=== PATIENT | female | born 1940 | race Caucasian/White ===

== ENCOUNTER 2016-07-13 09:46 | Outpatient (CLI) | payer OTHER | END 2016-07-13 23:00 | LOC: LAB SRH 09:46 | DX: I49.5 Sick sinus syndrome (principal); R00.1 Bradycardia, unspecified | CPT/HCPCS: 90074; 90946; 92610; 92690; 92790; 92800 ==

== ENCOUNTER 2016-07-15 12:43 | Emergency (ER) | payer OTHER ==
--- NOTE | 2016-07-15 14:05 | ED NURSING NOTES ---
Clinical Report - Nurses [facility] [address] [place] [address] 07/15/2016 12:45 Patient: GOPI STRANGE TRIAGE Triage time 1250. Acuity: LEVEL 5. Chief Complaint: TENDER AREA and . Pt in c/o burning pain and renedss to face- this episode has lasted 2 months, getting steadily worse. --13:01 Margy Sanz R.N. 12:53 07/15/16. HR: 73. RR: 18. O2 saturation: 100%. Temp: 97.7 F. Pain level now 01/19. --13:01 Margy Sanz R.N. Weight: 60.7 kg stated. Height/Length: 64.5 inches Per Patient. BMI: 22.6. --13:00 Margy Sanz R.N. Medications ALPRAZolam Oral, at bedtime. Biotin Oral. --13:03 Margy Sanz R.N. Calcium 750mg. Imodium Oral 2 mg, 2x a day. Vit D 2000u daily. --13:03 Margy Sanz R.N. Estradiol Oral, daily. --13:03 Margy Sanz R.N. Triamcinolone Acetonide External (* used to work, but not anymore). --13:04 Margy Sanz R.N. Allergies [place]. Codeine. Cromium. Darvon-N. Hydrocodone-APAP. Ibuprofen. Naprosyn. OxyCODONE HCl. Penicillins. Sulfa Antibiotics. --12:55 Margy Sanz R.N. History Arrived by private vehicle. Historian: patient. Unaccompanied. Primary physician (bhumi). ( Has had similar episodes off and on x 20 years, here today to get something to make burning pain less/more tolerable). SOCIAL HX: Never smoker. Occasional alcohol use. No drug use. --13:01 Yvon, Margy, R.N. Primary physician (bhumi * has appt on 07/25, but couldnt wait due to itching). --13:04 Margy Sanz R.N. PROBLEMS: UTI - Urinary Tract Infection. Neck Pain. Environmental Allergies. Colitis. Depression. Degenerative Joint Disease. Osteoporosis. --12:56 Margy Sanz R.N. ADDITIONAL SURGERIES: Hysterectomy. Knee Prosthesis. Knee Surgery. R knee revision. Tonsillectomy. --12:56 Margy Sanz R.N. Interventions ID band on patient. To treatment room. --13:01 Margy Sanz R.N. PHYSICAL ASSESSMENT 12:50. Ambulatory to room. Patient gowned. GENERAL / NEURO / PSYCH: Alert. Appears in pain. Oriented X 4. RESPIRATORY: Respirations not labored. CVS: Capillary refill less than 2 seconds. SKIN: Skin is warm and dry. Skin rash present. Erythema present. --12:59 Margy Sanz R.N. NURSING PROGRESS NOTES 12:50. Patient gowned. Head of bed elevated. Reassurance given. Patient identifiers checked. Call light placed in reach. Side rails up. Bed placed in lowest position. Patient ready for evaluation- chart flagged. --12:57 Margy Sanz R.N. 13:05 07/15/16. ( Pt had to go to bathroom. UA obtained, held in room if needed). --13:05 Margy Sanz R.N. Locked/Released at 07/18/2016 10:41 by Samantha Carias R.N.
--- NOTE | 2016-07-15 14:05 | ED CLINICAL REPORT ---
Clinical Report - Physicians/Mid Levels [facility] [address] [place] [address] 07/15/2016 12:45 Patient: GOPI STRANGE Time Seen: 13:59 Jul 15 2016. Arrived- By private vehicle. Historian- patient. CPT: ER phys charges level 3 (#[id number]). HISTORY OF PRESENT ILLNESS Chief Complaint: SKIN RASH. This started On and off for 2 months. and is still present. It is described as itchy. It has been located on the face and right wrist. No cause has been identified. Similar symptoms previously: Worse. Diagnosis: urticaria (due to knee prosthesis.). Recent medical care: Not recently seen/assessed. REVIEW OF SYSTEMS No fever, chills, sore throat, cough or difficulty breathing. No hoarseness, lump in throat, enlarged lymph nodes, eye irritation or chest pain. No abdominal pain, nausea, diarrhea, difficulty with urination or genital lesions. No joint pain or vomiting. Under a lot of stress recently. All systems otherwise negative, except as recorded above. 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 She had hives due to right knee implant. Knee surgery times 2. Second surgery was done to get rid of allergy inducing prosthesis and replace with a ceramic prosthesis. Medications: Triamcinolone Acetonide External (* used to work, but not anymore). Estradiol Oral, daily. Calcium 750mg. Imodium Oral 2 mg, 2x a day. Vit D 2000u daily. ALPRAZolam Oral, at bedtime. Biotin Oral. Allergies: [place]. Codeine. Cromium. Darvon-N. Hydrocodone-APAP. Ibuprofen. Naprosyn. OxyCODONE HCl. Penicillins. Sulfa Antibiotics. SOCIAL HISTORY Never smoker. Occasional alcohol use. No drug use. ADDITIONAL NOTES The nursing notes have been reviewed. PHYSICAL EXAM Vital Signs: 07/15/2016 12:53 BP: 130/60. HR: 73. RR: 18. O2 saturation: 100%. Temp: 97.7 F. Appearance: Alert. No acute distress. Eyes: Pupils equal, round and reactive to light. Conjunctivae and eyelids normal. ENT: Ears normal. Nose normal. Pharynx normal. Neck: Neck supple. CVS: Normal heart rate and rhythm. Heart sounds normal. Respiratory: No respiratory distress. Breath sounds normal. Chest nontender. No wheezes. Abdomen: Nontender. Skin: No cellulitis. Rash present on the right forehead and chin, right and left cheek, nose and perioral area. Rash present on the left wrist. No abscess. Extremities: Extremities nontender. Neuro: Oriented X 3. No motor deficit. No sensory deficit. PROGRESS AND PROCEDURES Patient/family counseled. Disposition: Discharged. Condition: stable. CLINICAL IMPRESSION Acute urticaria secondary to allergy and unknown cause. INSTRUCTIONS Warnings: Further evaluation is necessary. GENERAL WARNINGS: Return or contact your physician immediately if your condition worsens or changes unexpectedly, if not improving as expected, or if other problems arise. Your Current Medications: CONTINUE TAKING THE FOLLOWING MEDICATIONS: ALPRAZolam Oral : at bedtime. Biotin Oral. Calcium 750mg*. Estradiol Oral : daily. Imodium Oral : 2 mg 2x a day. Triamcinolone Acetonide External : * used to work, but not anymore. Vit D 2000u daily*. Prescription Medications: Prednisone 20 mg: take 2 orally every day for 5 days. Dispense ten (10). No refills. Famotidine 40 mg: take 1 orally at bedtime. Dispense fifteen (15). No refills. OTC Medications: Benadryl Allergy 25 mg (available over the counter): take 1 orally every 6 hours as needed for itching or allergies. Dispense twenty (20). No refill. Substitution is permissible. Follow-up: Follow up with an airframe and powerplant technician. Call for the next available appointment. Understanding of the discharge instructions verbalized by patient. (Electronically signed by José Steel MD 07/15/2016 20:05)
--- NOTE | 2016-07-15 14:05 | ED NURSING NOTES ---
Clinical Report - Nurses [facility] [address] [place] [address] 07/15/2016 12:45 Patient: GOPI STRANGE TRIAGE Triage time 1250. Acuity: LEVEL 5. Chief Complaint: TENDER AREA and . Pt in c/o burning pain and renedss to face- this episode has lasted 2 months, getting steadily worse. --13:01 Margy Sanz R.N. 12:53 07/15/16. HR: 73. RR: 18. O2 saturation: 100%. Temp: 97.7 F. Pain level now 01/19. --13:01 Margy Sanz R.N. Weight: 60.7 kg stated. Height/Length: 64.5 inches Per Patient. BMI: 22.6. --13:00 Margy Sanz R.N. Medications ALPRAZolam Oral, at bedtime. Biotin Oral. --13:03 Margy Sanz R.N. Calcium 750mg. Imodium Oral 2 mg, 2x a day. Vit D 2000u daily. --13:03 Margy Sanz R.N. Estradiol Oral, daily. --13:03 Margy Sanz R.N. Triamcinolone Acetonide External (* used to work, but not anymore). --13:04 Maryg Sanz R.N. Allergies [place]. Codeine. Cromium. Darvon-N. Hydrocodone-APAP. Ibuprofen. Naprosyn. OxyCODONE HCl. Penicillins. Sulfa Antibiotics. --12:55 Margy Sanz R.N. History Arrived by private vehicle. Historian: patient. Unaccompanied. Primary physician (bhumi). ( Has had similar episodes off and on x 20 years, here today to get something to make burning pain less/more tolerable). SOCIAL HX: Never smoker. Occasional alcohol use. No drug use. --13:01 Yvon, Margy, R.N. Primary physician (bhumi * has appt on 07/25, but couldnt wait due to itching). --13:04 Margy Sanz R.N. PROBLEMS: UTI - Urinary Tract Infection. Neck Pain. Environmental Allergies. Colitis. Depression. Degenerative Joint Disease. Osteoporosis. --12:56 Margy Sanz R.N. ADDITIONAL SURGERIES: Hysterectomy. Knee Prosthesis. Knee Surgery. R knee revision. Tonsillectomy. --12:56 Margy Sanz R.N. Interventions ID band on patient. To treatment room. --13:01 Margy Sanz R.N. PHYSICAL ASSESSMENT 12:50. Ambulatory to room. Patient gowned. GENERAL / NEURO / PSYCH: Alert. Appears in pain. Oriented X 4. RESPIRATORY: Respirations not labored. CVS: Capillary refill less than 2 seconds. SKIN: Skin is warm and dry. Skin rash present. Erythema present. --12:59 Margy Sanz R.N. NURSING PROGRESS NOTES 12:50. Patient gowned. Head of bed elevated. Reassurance given. Patient identifiers checked. Call light placed in reach. Side rails up. Bed placed in lowest position. Patient ready for evaluation- chart flagged. --12:57 Margy Sanz R.N. 13:05 07/15/16. ( Pt had to go to bathroom. UA obtained, held in room if needed). --13:05 Margy Sanz R.N. Locked/Released at 07/18/2016 10:41 by Samantha Carias R.N.
--- NOTE | 2016-07-15 14:05 | ED CLINICAL REPORT ---
Clinical Report - Physicians/Mid Levels [facility] [address] [place] [address] 07/15/2016 12:45 Patient: GOPI STRANGE Time Seen: 13:59 Jul 15 2016. Arrived- By private vehicle. Historian- patient. CPT: ER phys charges level 3 (#[id number]). HISTORY OF PRESENT ILLNESS Chief Complaint: SKIN RASH. This started On and off for 2 months. and is still present. It is described as itchy. It has been located on the face and right wrist. No cause has been identified. Similar symptoms previously: Worse. Diagnosis: urticaria (due to knee prosthesis.). Recent medical care: Not recently seen/assessed. REVIEW OF SYSTEMS No fever, chills, sore throat, cough or difficulty breathing. No hoarseness, lump in throat, enlarged lymph nodes, eye irritation or chest pain. No abdominal pain, nausea, diarrhea, difficulty with urination or genital lesions. No joint pain or vomiting. Under a lot of stress recently. All systems otherwise negative, except as recorded above. 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 She had hives due to right knee implant. Knee surgery times 2. Second surgery was done to get rid of allergy inducing prosthesis and replace with a ceramic prosthesis. Medications: Triamcinolone Acetonide External (* used to work, but not anymore). Estradiol Oral, daily. Calcium 750mg. Imodium Oral 2 mg, 2x a day. Vit D 2000u daily. ALPRAZolam Oral, at bedtime. Biotin Oral. Allergies: [place]. Codeine. Cromium. Darvon-N. Hydrocodone-APAP. Ibuprofen. Naprosyn. OxyCODONE HCl. Penicillins. Sulfa Antibiotics. SOCIAL HISTORY Never smoker. Occasional alcohol use. No drug use. ADDITIONAL NOTES The nursing notes have been reviewed. PHYSICAL EXAM Vital Signs: 07/15/2016 12:53 BP: 130/60. HR: 73. RR: 18. O2 saturation: 100%. Temp: 97.7 F. Appearance: Alert. No acute distress. Eyes: Pupils equal, round and reactive to light. Conjunctivae and eyelids normal. ENT: Ears normal. Nose normal. Pharynx normal. Neck: Neck supple. CVS: Normal heart rate and rhythm. Heart sounds normal. Respiratory: No respiratory distress. Breath sounds normal. Chest nontender. No wheezes. Abdomen: Nontender. Skin: No cellulitis. Rash present on the right forehead and chin, right and left cheek, nose and perioral area. Rash present on the left wrist. No abscess. Extremities: Extremities nontender. Neuro: Oriented X 3. No motor deficit. No sensory deficit. PROGRESS AND PROCEDURES Patient/family counseled. Disposition: Discharged. Condition: stable. CLINICAL IMPRESSION Acute urticaria secondary to allergy and unknown cause. INSTRUCTIONS Warnings: Further evaluation is necessary. GENERAL WARNINGS: Return or contact your physician immediately if your condition worsens or changes unexpectedly, if not improving as expected, or if other problems arise. Your Current Medications: CONTINUE TAKING THE FOLLOWING MEDICATIONS: ALPRAZolam Oral : at bedtime. Biotin Oral. Calcium 750mg*. Estradiol Oral : daily. Imodium Oral : 2 mg 2x a day. Triamcinolone Acetonide External : * used to work, but not anymore. Vit D 2000u daily*. Prescription Medications: Prednisone 20 mg: take 2 orally every day for 5 days. Dispense ten (10). No refills. Famotidine 40 mg: take 1 orally at bedtime. Dispense fifteen (15). No refills. OTC Medications: Benadryl Allergy 25 mg (available over the counter): take 1 orally every 6 hours as needed for itching or allergies. Dispense twenty (20). No refill. Substitution is permissible. Follow-up: Follow up with an tennis desk team member. Call for the next available appointment. Understanding of the discharge instructions verbalized by patient. (Electronically signed by José Steel MD 07/15/2016 20:05)
--- NOTE | 2016-07-18 10:42 | ED DISCHARGE INSTRUCTIONS ---
Patient: GOPI STRANGE General Instructions [facility] VisitID: [id number] [place] [address] 76y, F Registration Date/Time: 07/15/2016 Acute urticaria secondary to allergy and unknown cause. INSTRUCTIONS Warnings: Further evaluation is necessary. GENERAL WARNINGS: Return or contact your physician immediately if your condition worsens or changes unexpectedly, if not improving as expected, or if other problems arise. Your Current Medications: CONTINUE TAKING THE FOLLOWING MEDICATIONS: ALPRAZolam Oral : at bedtime. Biotin Oral. Calcium 750mg*. Estradiol Oral : daily. Imodium Oral : 2 mg 2x a day. Triamcinolone Acetonide External : * used to work, but not anymore. Vit D 2000u daily*. Prescription Medications: Prednisone 20 mg: take 2 orally every day for 5 days. Dispense ten (10). No refills. Famotidine 40 mg: take 1 orally at bedtime. Dispense fifteen (15). No refills. OTC Medications: Benadryl Allergy 25 mg (available over the counter): take 1 orally every 6 hours as needed for itching or allergies. Dispense twenty (20). No refill. Substitution is permissible. Follow-up: Follow up with an java development manager. Call for the next available appointment. Understanding of the discharge instructions verbalized by patient. ADDITIONAL INFORMATION Hives Hives is an itchy red rash that can appear suddenly and move about your body. It goes away in one place and comes back in another. This is usually caused by something that you are allergic to such as: EATING: fruit, shellfish, chocolate, nuts, tomatoes or medicine BREATHING: pollens, animal hair/fur or mold spores Exposure to cold air, sun rays or exercise can sometimes cause an attack. Many times we cannot find a cause. Medicines can be used to reduce itching and swelling. The rash will usually fade over several days, but can sometimes last up to two weeks. Home Care: 1) Do not wear tight clothing and do not take hot baths/showers since heat can make the itching worse. 2) An ice pack (ice cubes in a plastic bag, wrapped in a towel) will reduce local areas of redness and itching. Lanacaine cream or Solarcaine spray (or other product containing "benzocaine") will reduce itching. 3) Oral Benadryl (diphenhydramine) is an antihistamine available at drug and grocery stores. Unless a prescription antihistamine was given, Benadryl may be used to reduce itching if large areas of the skin are involved. Use lower doses during the daytime and higher doses at bedtime since the drug may make you sleepy. [NOTE: Do not use Benadryl if you have glaucoma or if you are a man with trouble urinating due to an enlarged prostate.] Claritin (loratadine) is an antihistamine that causes less drowsiness and is a good alternative for daytime use. 4) If you know what you are sensitive to, avoid this substance. Future reactions could be worse than this one. Follow Up with your doctor as directed by our staff, if symptoms do not begin to improve in two days. If you have had a severe reaction, or have had several episodes of hives, then ask your doctor about allergy testing to find out what you are allergic to. Get Prompt Medical Attention if any of the following occur: -- Trouble breathing or swallowing -- New or increased swelling in the face, lips, tongue or throat -- Dizziness, weakness or fainting Famotidine Oral tablet What is this medicine? FAMOTIDINE (fa MISAEL ti eliel) is a type of antihistamine that blocks the release of stomach acid. It is used to treat stomach or intestinal ulcers. It can also relieve heartburn from acid reflux. How should I use this medicine? Take this medicine by mouth with a glass of water. Follow the directions on the prescription label. If you only take this medicine once a day, take it at bedtime. Take your doses at regular intervals. Do not take your medicine more often than directed. Talk to your fitter helper regarding the use of this medicine in children. Special care may be needed. What side effects may I notice from receiving this medicine? Side effects that you should report to your doctor or health child care coordinator as soon as possible: agitation, nervousness confusion hallucinations skin rash, itching Side effects that usually do not require medical attention (report to your doctor or health child care coordinator if they continue or are bothersome): constipation diarrhea dizziness headache What may interact with this medicine? delavirdine itraconazole ketoconazole What if I miss a dose? If you miss a dose, take it as soon as you can. If it is almost time for your next dose, take only that dose. Do not take double or extra doses. Where should I keep my medicine? Keep out of the reach of children. Store at room temperature between 15 and 30 degrees C (59 and 86 degrees F). Do not freeze. Throw away any unused medicine after the expiration date. What should I tell my health care provider before I take this medicine? They need to know if you have any of these conditions: kidney or liver disease trouble swallowing an unusual or allergic reaction to famotidine, other medicines, foods, dyes, or preservatives or trying to get breast-feeding What should I watch for while using this medicine? Tell your doctor or health child care coordinator if your condition does not start to get better or if it gets worse. Finish the full course of tablets prescribed, even if you feel better. Do not take with aspirin, ibuprofen or other antiinflammatory medicines. These can make your condition worse. Do not smoke cigarettes or drink alcohol. These cause irritation in your stomach and can increase the time it will take for ulcers to heal. If you get black, tarry stools or vomit up what looks like coffee grounds, call your doctor or health child care coordinator at once. You may have a bleeding ulcer. Diphenhydramine Tannate Chewable tablet What is this medicine? DIPHENHYDRAMINE (dye elena hernandes) is an antihistamine. It is used to treat the symptoms of an allergic reaction. How should I use this medicine? Take this medicine by mouth. Chew it completely before swallowing. Follow the directions on the prescription label. Take your doses at regular intervals. Do not take your medicine more often than directed. Talk to your fitter helper regarding the use of this medicine in children. While this drug may be prescribed for children as young as 6 years old for selected conditions, precautions do apply. Patients over 65 years old may have a stronger reaction and need a smaller dose. What side effects may I notice from receiving this medicine? Side effects that you should report to your doctor or health child care coordinator as soon as possible: allergic reactions like skin rash, itching or hives, swelling of the face, lips, or tongue changes in vision confused, agitated, nervous irregular or fast heartbeat tremor trouble passing urine unusual bleeding or bruising unusually weak or tired Side effects that usually do not require medical attention (report to your doctor or health child care coordinator if they continue or are bothersome): constipation, diarrhea drowsy headache loss of appetite stomach upset, vomiting thick mucous What may interact with this medicine? Do not take this medicine with any of the following medications: MAOIs like Carbex, Eldepryl, Marplan, Nardil, and Parnate This medicine may also interact with the following medications: alcohol barbiturates, like phenobarbital medicines for bladder spasm like oxybutynin, tolterodine medicines for blood pressure medicines for depression, anxiety, or psychotic disturbances medicines for movement abnormalities or Parkinson's disease medicines for sleep other medicines for cold, cough or allergy some medicines for the stomach like chlordiazepoxide, dicyclomine What if I miss a dose? If you miss a dose, take it as soon as you can. If it is almost time for your next dose, take only that dose. Do not take double or extra doses. Where should I keep my medicine? Keep out of the reach of children. Store at room temperature between 15 and 30 degrees C (59 and 86 degrees F). Keep container closed tightly. Throw away any unused medicine after the expiration date. What should I tell my health care provider before I take this medicine? They need to know if you have any of these conditions: glaucoma high blood pressure heart disease liver disease lung or breathing disease, like asthma pain or difficulty passing urine phenylketonuria prostate trouble ulcers or other stomach problems an unusual or allergic reaction to diphenhydramine, sulfites, other medicines foods, dyes, or preservatives or trying to get breast-feeding What should I watch for while using this medicine? Visit your doctor or health child care coordinator for regular check ups. Tell your doctor or healthcare professional if your symptoms do not start to get better or if they get worse. Your mouth may get dry. Chewing sugarless gum or sucking hard candy, and drinking plenty of water may help. Contact your doctor if the problem does not go away or is severe. This medicine may cause dry eyes and blurred vision. If you wear contact lenses you may feel some discomfort. Lubricating drops may help. See your eye doctor if the problem does not go away or is severe. You may get drowsy or dizzy. Do not drive, use machinery, or do anything that needs mental alertness until you know how this medicine affects you. Do not stand or sit up quickly, especially if you are an older patient. This reduces the risk of dizzy or fainting spells. Alcohol may interfere with the effect of this medicine. Avoid alcoholic drinks. You have been given the following additional information: Hives Famotidine Oral tablet Diphenhydramine Tannate Chewable tablet (Electronically signed by José Steel MD 07/15/2016 20:05)
--- NOTE | 2016-07-18 10:42 | ED MED RECONCILIATION SUMMARY ---
Patient: GOPI STRANGE Medication Reconciliation Report [facility] VisitID: [id number] [address] [place] [address] 76y, F Registration Date/Time: 07/15/2016 Weight: 60.7 kg Height/Length: (not available) BMI: 22.6 ALLERGIES: [place], Codeine, Cromium, Darvon-N, Hydrocodone-APAP, Ibuprofen, Naprosyn, OxyCODONE HCl, Penicillins, Sulfa Antibiotics The patient's Home Medications are listed below: CONTINUE TAKING THE FOLLOWING MEDICATIONS: ALPRAZolam Oral, at bedtime Biotin Oral Calcium 750mg Estradiol Oral, daily Imodium Oral 2 mg, 2x a day Triamcinolone Acetonide External, * used to work, but not anymore Vit D 2000u daily The source(s) of the original Home Medication information: Not obtained. The following Medications were given to the patient in the Emergency Department: None. The following Medications were prescribed to the patient: Benadryl Allergy 25 mg (available over the counter): take 1 orally every 6 hours as needed for itching or allergies. Dispense twenty (20). No refill. Substitution is permissible. -- José Steel MD Prednisone 20 mg: take 2 orally every day for 5 days. Dispense ten (10). No refills. -- José Steel MD Famotidine 40 mg: take 1 orally at bedtime. Dispense fifteen (15). No refills. -- José Steel MD
--- NOTE | 2016-07-18 10:42 | ED MED RECONCILIATION SUMMARY ---
Patient: GOPI STRANGE Medication Reconciliation Report [facility] VisitID: [id number] [address] [place] [address] 76y, F Registration Date/Time: 07/15/2016 Weight: 60.7 kg Height/Length: (not available) BMI: 22.6 ALLERGIES: [place], Codeine, Cromium, Darvon-N, Hydrocodone-APAP, Ibuprofen, Naprosyn, OxyCODONE HCl, Penicillins, Sulfa Antibiotics The patient's Home Medications are listed below: CONTINUE TAKING THE FOLLOWING MEDICATIONS: ALPRAZolam Oral, at bedtime Biotin Oral Calcium 750mg Estradiol Oral, daily Imodium Oral 2 mg, 2x a day Triamcinolone Acetonide External, * used to work, but not anymore Vit D 2000u daily The source(s) of the original Home Medication information: Not obtained. The following Medications were given to the patient in the Emergency Department: None. The following Medications were prescribed to the patient: Benadryl Allergy 25 mg (available over the counter): take 1 orally every 6 hours as needed for itching or allergies. Dispense twenty (20). No refill. Substitution is permissible. -- José Steel MD Prednisone 20 mg: take 2 orally every day for 5 days. Dispense ten (10). No refills. -- José Steel MD Famotidine 40 mg: take 1 orally at bedtime. Dispense fifteen (15). No refills. -- José Steel MD
--- NOTE | 2016-07-18 10:42 | ED DISCHARGE INSTRUCTIONS ---
Patient: GOPI STRANGE General Instructions [facility] VisitID: [id number] [place] [address] 76y, F Registration Date/Time: 07/15/2016 Acute urticaria secondary to allergy and unknown cause. INSTRUCTIONS Warnings: Further evaluation is necessary. GENERAL WARNINGS: Return or contact your physician immediately if your condition worsens or changes unexpectedly, if not improving as expected, or if other problems arise. Your Current Medications: CONTINUE TAKING THE FOLLOWING MEDICATIONS: ALPRAZolam Oral : at bedtime. Biotin Oral. Calcium 750mg*. Estradiol Oral : daily. Imodium Oral : 2 mg 2x a day. Triamcinolone Acetonide External : * used to work, but not anymore. Vit D 2000u daily*. Prescription Medications: Prednisone 20 mg: take 2 orally every day for 5 days. Dispense ten (10). No refills. Famotidine 40 mg: take 1 orally at bedtime. Dispense fifteen (15). No refills. OTC Medications: Benadryl Allergy 25 mg (available over the counter): take 1 orally every 6 hours as needed for itching or allergies. Dispense twenty (20). No refill. Substitution is permissible. Follow-up: Follow up with an director alliance marketing. Call for the next available appointment. Understanding of the discharge instructions verbalized by patient. ADDITIONAL INFORMATION Hives Hives is an itchy red rash that can appear suddenly and move about your body. It goes away in one place and comes back in another. This is usually caused by something that you are allergic to such as: EATING: fruit, shellfish, chocolate, nuts, tomatoes or medicine BREATHING: pollens, animal hair/fur or mold spores Exposure to cold air, sun rays or exercise can sometimes cause an attack. Many times we cannot find a cause. Medicines can be used to reduce itching and swelling. The rash will usually fade over several days, but can sometimes last up to two weeks. Home Care: 1) Do not wear tight clothing and do not take hot baths/showers since heat can make the itching worse. 2) An ice pack (ice cubes in a plastic bag, wrapped in a towel) will reduce local areas of redness and itching. Lanacaine cream or Solarcaine spray (or other product containing "benzocaine") will reduce itching. 3) Oral Benadryl (diphenhydramine) is an antihistamine available at drug and grocery stores. Unless a prescription antihistamine was given, Benadryl may be used to reduce itching if large areas of the skin are involved. Use lower doses during the daytime and higher doses at bedtime since the drug may make you sleepy. [NOTE: Do not use Benadryl if you have glaucoma or if you are a man with trouble urinating due to an enlarged prostate.] Claritin (loratadine) is an antihistamine that causes less drowsiness and is a good alternative for daytime use. 4) If you know what you are sensitive to, avoid this substance. Future reactions could be worse than this one. Follow Up with your doctor as directed by our staff, if symptoms do not begin to improve in two days. If you have had a severe reaction, or have had several episodes of hives, then ask your doctor about allergy testing to find out what you are allergic to. Get Prompt Medical Attention if any of the following occur: -- Trouble breathing or swallowing -- New or increased swelling in the face, lips, tongue or throat -- Dizziness, weakness or fainting Famotidine Oral tablet What is this medicine? FAMOTIDINE (fa MISAEL ti eliel) is a type of antihistamine that blocks the release of stomach acid. It is used to treat stomach or intestinal ulcers. It can also relieve heartburn from acid reflux. How should I use this medicine? Take this medicine by mouth with a glass of water. Follow the directions on the prescription label. If you only take this medicine once a day, take it at bedtime. Take your doses at regular intervals. Do not take your medicine more often than directed. Talk to your auto service dispatcher regarding the use of this medicine in children. Special care may be needed. What side effects may I notice from receiving this medicine? Side effects that you should report to your doctor or health child care centre manager as soon as possible: agitation, nervousness confusion hallucinations skin rash, itching Side effects that usually do not require medical attention (report to your doctor or health child care centre manager if they continue or are bothersome): constipation diarrhea dizziness headache What may interact with this medicine? delavirdine itraconazole ketoconazole What if I miss a dose? If you miss a dose, take it as soon as you can. If it is almost time for your next dose, take only that dose. Do not take double or extra doses. Where should I keep my medicine? Keep out of the reach of children. Store at room temperature between 15 and 30 degrees C (59 and 86 degrees F). Do not freeze. Throw away any unused medicine after the expiration date. What should I tell my health care provider before I take this medicine? They need to know if you have any of these conditions: kidney or liver disease trouble swallowing an unusual or allergic reaction to famotidine, other medicines, foods, dyes, or preservatives or trying to get breast-feeding What should I watch for while using this medicine? Tell your doctor or health child care centre manager if your condition does not start to get better or if it gets worse. Finish the full course of tablets prescribed, even if you feel better. Do not take with aspirin, ibuprofen or other antiinflammatory medicines. These can make your condition worse. Do not smoke cigarettes or drink alcohol. These cause irritation in your stomach and can increase the time it will take for ulcers to heal. If you get black, tarry stools or vomit up what looks like coffee grounds, call your doctor or health child care centre manager at once. You may have a bleeding ulcer. Diphenhydramine Tannate Chewable tablet What is this medicine? DIPHENHYDRAMINE (dye elena hernandes) is an antihistamine. It is used to treat the symptoms of an allergic reaction. How should I use this medicine? Take this medicine by mouth. Chew it completely before swallowing. Follow the directions on the prescription label. Take your doses at regular intervals. Do not take your medicine more often than directed. Talk to your auto service dispatcher regarding the use of this medicine in children. While this drug may be prescribed for children as young as 6 years old for selected conditions, precautions do apply. Patients over 65 years old may have a stronger reaction and need a smaller dose. What side effects may I notice from receiving this medicine? Side effects that you should report to your doctor or health child care centre manager as soon as possible: allergic reactions like skin rash, itching or hives, swelling of the face, lips, or tongue changes in vision confused, agitated, nervous irregular or fast heartbeat tremor trouble passing urine unusual bleeding or bruising unusually weak or tired Side effects that usually do not require medical attention (report to your doctor or health child care centre manager if they continue or are bothersome): constipation, diarrhea drowsy headache loss of appetite stomach upset, vomiting thick mucous What may interact with this medicine? Do not take this medicine with any of the following medications: MAOIs like Carbex, Eldepryl, Marplan, Nardil, and Parnate This medicine may also interact with the following medications: alcohol barbiturates, like phenobarbital medicines for bladder spasm like oxybutynin, tolterodine medicines for blood pressure medicines for depression, anxiety, or psychotic disturbances medicines for movement abnormalities or Parkinson's disease medicines for sleep other medicines for cold, cough or allergy some medicines for the stomach like chlordiazepoxide, dicyclomine What if I miss a dose? If you miss a dose, take it as soon as you can. If it is almost time for your next dose, take only that dose. Do not take double or extra doses. Where should I keep my medicine? Keep out of the reach of children. Store at room temperature between 15 and 30 degrees C (59 and 86 degrees F). Keep container closed tightly. Throw away any unused medicine after the expiration date. What should I tell my health care provider before I take this medicine? They need to know if you have any of these conditions: glaucoma high blood pressure heart disease liver disease lung or breathing disease, like asthma pain or difficulty passing urine phenylketonuria prostate trouble ulcers or other stomach problems an unusual or allergic reaction to diphenhydramine, sulfites, other medicines foods, dyes, or preservatives or trying to get breast-feeding What should I watch for while using this medicine? Visit your doctor or health child care centre manager for regular check ups. Tell your doctor or healthcare professional if your symptoms do not start to get better or if they get worse. Your mouth may get dry. Chewing sugarless gum or sucking hard candy, and drinking plenty of water may help. Contact your doctor if the problem does not go away or is severe. This medicine may cause dry eyes and blurred vision. If you wear contact lenses you may feel some discomfort. Lubricating drops may help. See your eye doctor if the problem does not go away or is severe. You may get drowsy or dizzy. Do not drive, use machinery, or do anything that needs mental alertness until you know how this medicine affects you. Do not stand or sit up quickly, especially if you are an older patient. This reduces the risk of dizzy or fainting spells. Alcohol may interfere with the effect of this medicine. Avoid alcoholic drinks. You have been given the following additional information: Hives Famotidine Oral tablet Diphenhydramine Tannate Chewable tablet (Electronically signed by José Steel MD 07/15/2016 20:05)
--- NOTE | 2016-07-18 10:42 | ED MAR SUMMARY ---
..... Medication Administration Record [facility] [address] [place], [place] [id number] Patient: GOPI STRANGE Visit ID: [id number] 76y, F Weight: 60.7 kg Height/Length: 64.5 in BMI: 22.6 ALLERGIES: [place], Codeine, Cromium, Darvon-N, Hydrocodone-APAP, Ibuprofen, Naprosyn, OxyCODONE HCl, Penicillins, Sulfa Antibiotics
--- NOTE | 2016-07-18 10:42 | ED MAR SUMMARY ---
..... Medication Administration Record [facility] [address] [place], [place] [id number] Patient: GOPI STRANGE Visit ID: [id number] 76y, F Weight: 60.7 kg Height/Length: 64.5 in BMI: 22.6 ALLERGIES: [place], Codeine, Cromium, Darvon-N, Hydrocodone-APAP, Ibuprofen, Naprosyn, OxyCODONE HCl, Penicillins, Sulfa Antibiotics
== END 2016-07-15 14:15 | disposition home or self-care (01) ==
LOC: ED SRH 12:43
DX: L50.0 Allergic urticaria (principal)

== ENCOUNTER 2016-08-12 10:47 | Outpatient (CLI) | payer OTHER ==
--- NOTE | 2016-08-12 15:07 | DIAGNOSTIC IMAGING REPORT ---
PROCEDURE: MG BILATERAL SCREENING W/CAD INDICATION: Screening, personal history of benign right breast biopsy, remote family history of breast cancer in the aunt and niece. TECHNIQUE: Standard CC and MLO views bilaterally. Computer aided detection was used. COMPARISON: 08/12/2015, 01/15/2014, 06/18/2012 FINDINGS: Moderately dense, heterogeneous nodular fibroglandular tissue is present bilaterally. Defibrillator power pack present in the left axilla. Interval development 78.3 mm ovoid glandular density in the central left breast seen on the MLO view only. No areas of architectural distortion, or suspicious microcalcifications. IMPRESSION: 1. Interval development of 8 mm ovoid density in the central left breast seen best on the MLO view. Further evaluation with spot compression, direct lateral left mammogram, and ultrasound is recommended. 2. The patient will be contacted. RESULT CODE: 0- Incomplete; needs additional evaluation. A. A negative report should not delay biopsy if a dominant or clinically suspicious mass is present. 10-15% of cancers are not identified by x-ray. B. A negative report may reinforce clinical impression. C. Adenosis and dense breasts may obscure an underlying neoplasm. D. False positive reports average 6-10%. E.. A yearly screening mammogram is recommended. A reminder letter will be scheduled.
== END 2016-08-12 23:00 ==
LOC: MAM SRH 10:47
DX: Z12.31 Encounter for screening mammogram for malignant neoplasm of breast (principal); Z80.3 Family history of malignant neoplasm of breast

== ENCOUNTER 2016-08-19 13:44 | Outpatient (CLI) | payer OTHER ==
--- NOTE | 2016-08-19 15:22 | DIAGNOSTIC IMAGING REPORT ---
PROCEDURE: MG UNILATERAL DIAG-LT W/CAD INDICATION: F/U ABN LEYLA TECHNIQUE: Spot compression mammographic views of the left breast in the CC and MLO projection. A direct lateral left breast mammogram using CAD. Rolled views of the left breast in the MLO projection. The patient then went to ultrasound where dominguez-scale and color Doppler sonographic imaging of the left breast was performed. COMPARISON: 08/12/2016, 08/12/2015, 01/15/2014 FINDINGS: Mammograms: With spot compression views in the MLO projection, there is confirmation of a 7 mm nodule, less dense than surrounding glandularity. Its margins are partially obscured by glandular tissue. It is not well seen in the CC projection. There is no adjacent architectural distortion or suspicious calcification. Ultrasound: At the 2 o'clock position in the anterior breast, there is an 8 mm simple cyst corresponding to the mammographic abnormality. Occasional much smaller cystic structures are seen throughout the tissue in the upper breast including a tiny nodule with internal echoes and trace vascularity suggestive of a benign intramammary lymph node. IMPRESSION: 1. An 8 mm simple cyst corresponds to the mammographic finding. No concerning features. 2. Mildly fibrocystic breast tissue. No mammographic or sonographic evidence of malignancy. 3. The patient can return to yearly screening mammography. Findings and recommendations were discussed with the patient. RESULT CODE: 2- Benign findings. A. A negative report should not delay biopsy if a dominant or clinically suspicious mass is present. 10-15% of cancers are not identified by x-ray. B. A negative report may reinforce clinical impression. C. Adenosis and dense breasts may obscure an underlying neoplasm. D. False positive reports average 6-10%. E.. A yearly screening mammogram is recommended. A reminder letter will be scheduled.
== END 2016-08-19 23:00 ==
LOC: MAM SRH 13:44
DX: N60.02 Solitary cyst of left breast (principal)

== ENCOUNTER 2016-09-26 11:55 | Outpatient (CLI) | payer OTHER ==
--- NOTE | 2016-09-26 13:20 | DIAGNOSTIC IMAGING REPORT ---
PROCEDURE: US VENOUS - RIGHT EXT INDICATION: RT LEG PAIN VERICOUS VEINS TECHNIQUE: Duplex sonography of the deep and superficial venous system in the right lower extremity was performed. Compression and augmentation techniques were used. The patient was scanned in the upright position. Surveillance of the venous system during Valsalva maneuver when appropriate was performed. COMPARISON: Bilateral lower extremity venous duplex ultrasound 08/21/2009. FINDINGS: Each interrogated segment of the deep vein demonstrates normal compressibility, augmentation, and normal color Doppler flow without filling defect. No thrombus in either greater saphenous or short saphenous vein. There is no venous reflux in the deep system. Right greater saphenous vein is competent and measures 4 mm proximally, 2 mm mid and is not visualized distally. There is reflux in the tortuous small saphenous vein proximally (4.0 seconds, six Soliz diameter) and mid (4.2 seconds, diameter 5 mm). There is a nonocclusive thrombus in the distal short saphenous vein. IMPRESSION: 1. Reflux in the right small saphenous vein (proximal and mid) with nonocclusive thrombus of the distal small saphenous vein 2. No evidence of deep system reflux 3. No evidence of a DVT
== END 2016-09-26 23:00 ==
LOC: US SRH 11:55
DX: I82.811 Embolism and thrombosis of superficial veins of right lower extremity (principal)